=== PATIENT | female | born 1965 | race Caucasian/White ===

== ENCOUNTER 2022-03-08 15:44 | Observation (INO) ==
[2022-03-08] MEDS ORDERED: KETOROLAC TROMETHAMINE 15 MG/ML VIAL IV STA (16:13)
[2022-03-08] MEDS ORDERED: ONDANSETRON INJ 2 MG/ML 2 ML VIAL IV STA (16:13)
[2022-03-08] MEDS ORDERED: SODIUM CHLORIDE 0.9% 1000ML 1,000 ML IV ONE (16:13)
[2022-03-08 16:27] LABS: Basophils # (auto) 0.05 K/uL (0-0.2); Basophils % (auto) 0.5 %; Eosinophils # (auto) 0.18 K/uL (0-0.50); Eosinophils % (auto) 1.8 %; Immature Granulocytes # (auto) 0.03 K/uL (0.00-0.02); Immature Granulocytes % (auto) 0.3 %; Lymphocytes # (auto) 1.03 K/uL (1.2-3.4); Lymphocytes % (auto) 10.2 %; Mean Corpuscular Hemoglobin 29.2 pg (25.0-34.0); Mean Corpuscular Hgb Conc 32.6 g/dL (32.0-36.0); Mean Corpuscular Volume 89.6 fL (80.0-100.0); Mean Platelet Volume 10.9 fL (9.4-12.3); Monocytes # (auto) 0.59 K/uL (0.24-0.82); Monocytes % (auto) 5.9 %; Neutrophils % (auto) 81.3 %; Platelet Count 194 K/uL (130-400); RDW Coefficient of Variation 13.4 % (11.5-14.5); White Blood Count 10.08 K/ul (4.8-10.8)
[2022-03-08 16:39] LABS: Partial Thromboplastin Ratio 0.9; Partial Thromboplastin Time 25.3 Seconds (21.0-31.0); Prothrombin Time 10.6 Seconds (9.0-12.0)
[2022-03-08 16:54] LABS: Alanine Aminotransferase 13 U/L (7-52); Albumin Level 4.3 gm/dl (3.4-5.0); Alkaline Phosphatase 62 U/L (34-104); Anion Gap 8 (3-11); Aspartate Aminotransferase 14 U/L (13-39); BUN Creatinine Ratio 12.4 (10-20); Bilirubin Direct 0.3 mg/dl (0-0.2); Bilirubin,Total 1.4 mg/dl (0.2-1.0); Blood Urea Nitrogen 13 mg/dl (6-23); Calcium 9.6 mg/dl (8.5-10.1); Carbon Dioxide 29 mmol/L (21-32); Chloride 106 mmol/L (98-107); Est GFR (African American) 68.8 ml/min; Est GFR (Non-African American) 59.3 ml/min; Glucose 128 mg/dl (70-99(Fasting)); Lipase 41 U/L (11-82); Potassium 4.1 mmol/L (3.5-5.1); Sodium 143 mmol/L (136-145); Total Protein 7.2 gm/dl (6.0-8.3)
--- NOTE | 2022-03-08 16:58 | Emergency Department Note ---
History of Present Illness General Chief Complaint: Rib Injury/Pain Stated Complaint: RIB PAIN Time Seen by Provider: 03/08/22 15:57 History of Present Illness Provider Complaint: abdominal pain and flank pain Onset (ago): 1 day(s) Pain Consistency: intermittent Location: RUQ Radiation: R flank Maximum Pain Intensity: 9 Current Pain Intensity: 9 Quality: + stabbing, + aching, + sharp and + dull Relieved By: + nothing Exacerbated By: + nothing Context: no foreign travel, no possible food poisoning, no sick contacts, no recent antibiotic use, no recent surgery/procedure or no recent injury Associated Symptoms: + nausea; no vomiting, no diarrhea, no fever, no chills, no constipation, no dysuria, no hematemesis, no hematochezia, no melena, no hematuria, no anorexia, no headache, no chest pain and no breathing difficulty Related Data Patient Confirmed : No Home Medications Medication Instructions Recorded Confirmed Type atorvastatin 10 mg tablet 10 mg PO QPM 03/08/22 03/08/22 History celecoxib 200 mg capsule 200 mg PO QAM 03/08/22 03/08/22 History docusate sodium 100 mg capsule 100 mg PO BID PRN Constipation 03/08/22 03/08/22 History dulaglutide 3 mg/0.5 mL 3 mg subcut WK 03/08/22 03/08/22 History subcutaneous pen injector (Trulicity) duloxetine 60 mg capsule,delayed 120 mg PO QAM 03/08/22 03/08/22 History release gabapentin 600 mg tablet 600 mg PO TID 03/08/22 03/08/22 History lisinopril 5 mg tablet 5 mg PO QAM 03/08/22 03/08/22 History oxycodone-acetaminophen 10 mg-325 1 tab PO Q8H PRN Pain 03/08/22 03/08/22 History mg tablet trazodone 100 mg tablet 100 mg PO HS 03/08/22 03/08/22 History Allergies Allergy/AdvReac Type Severity Reaction Status Date / Time fluticasone Allergy Unknown RASH Unverified 03/08/22 19:46 Past Med/Surg History Medical History (Updated 03/08/22 @ 22:55 by Gerry Kingsley) Anxiety Arthritis Diabetes Dyslipidemia Hypertension Neuropathy Obesity Reactive airway disease SVT (supraventricular tachycardia) Surgical History Hx of cholecystectomy Family History Other Family history non-contributory Social History Smoking Status: Never smoker Preferred Language: Italian Feels Safe at Home: Yes Review of Systems A total of 10 systems reviewed and were otherwise negative Physical Exam Vital Signs: Vital Signs - 24 hr 03/08/22 15:49 03/08/22 16:29 03/08/22 16:29 Temperature 37.7 C H Temperature Source Temporal Artery Sc an Pulse Rate 103 H Pulse Rate [Apical ] 83 Pulse Rate from Sp O2 Sensor Respiratory Rate 20 17 Respiratory Effort / Characteristics Non-Labored Respiratory Depth Normal Blood Pressure 151/85 H Blood Pressure [Le ft Arm] 155/89 H Blood Pressure Stephanie n 107 Blood Pressure Stephanie n [Left Arm] 111 Pulse Oximetry 95 96 96 Oxygen Delivery Me thod Room Air Room Air Room Air Sepsis Recent Feve r Within 48 Hours No Sepsis New/Unexpla ined Change in Men cindy Status N/A Sepsis Action Take n by Nursing No Action Required 03/08/22 17:53 03/08/22 17:57 03/08/22 17:57 Temperature Temperature Source Pulse Rate Pulse Rate [Apical ] Pulse Rate from Sp O2 Sensor 89 95 H Respiratory Rate Respiratory Effort / Characteristics Respiratory Depth Blood Pressure 144/81 H Blood Pressure [Le ft Arm] Blood Pressure Stephanie n 102 Blood Pressure Stephanie n [Left Arm] Pulse Oximetry 95 96 Oxygen Delivery Me thod Sepsis Recent Feve r Within 48 Hours Sepsis New/Unexpla ined Change in Men cindy Status Sepsis Action Take n by Nursing 03/08/22 18:00 03/08/22 18:00 Temperature Temperature Source Pulse Rate Pulse Rate [Apical ] Pulse Rate from Sp O2 Sensor 94 H Respiratory Rate Respiratory Effort / Characteristics Respiratory Depth Blood Pressure 146/79 H Blood Pressure [Le ft Arm] Blood Pressure Stephanie n 101 Blood Pressure Stephanie n [Left Arm] Pulse Oximetry 95 Oxygen Delivery Me thod Sepsis Recent Feve r Within 48 Hours Sepsis New/Unexpla ined Change in Men cindy Status Sepsis Action Take n by Nursing Physical Exam: Physical Exam GENERAL: She is oriented to person, place, and time. She appears well-developed and well-nourished. She does not appear distressed. HENT: Exam performed. -Head: Normocephalic and atraumatic. -Right Ear: External ear normal. No mastoid tenderness. -Left Ear: External ear normal. No mastoid tenderness. -Mouth/Throat: The oropharynx is clear and moist. No trismus in the jaw. No dental abscesses or uvula swelling. No oropharyngeal exudate or tonsillar abscesses. EYES: Conjunctivae and EOM are normal. Pupils are equal, round, and reactive to light. Right eye exhibits no discharge. Left eye exhibits no discharge. No scleral icterus. NECK: Normal range of motion. Neck supple. No JVD present. No spinous process tenderness present. No carotid bruit present. No rigidity. No tracheal deviation and normal range of motion present. No Brudzinski's sign and no Kernig's sign noted. CV: Normal rate, regular rhythm, normal heart sounds and intact distal pulses. There is no peripheral edema. Palpable radial pulses bue. PULM/CHEST: Effort normal and breath sounds normal. No respiratory distress. No stridor. She has no wheezes. She has no rales. -Chest Wall: She exhibits no tenderness. ABD: The abdomen is soft. Bowel sounds are normal. She has no distension. No mass is present. There is tenderness to palpation of the right upper quadrant and right lower quadrant. There is no rebound, no guarding, no Garcia's sign. Rovsig negative. Right-sided CVA tenderness. MUSC/SKEL: Normal range of motion. There is no peripheral edema, tenderness or deformity. LYMPH: No cervical adenopathy. NEURO: She is alert and oriented to person, place, and time. She has normal strength. No cranial nerve deficit or sensory deficit. Coordination and gait normal. GCS eye subscore is 4. GCS verbal subscore is 5. GCS motor subscore is 6. Cerebellar tests wnl. SKIN: Skin is warm and dry. She is not diaphoretic. PSYCH: She has a normal mood and affect. Behavior is normal. Judgment and thought content normal. Course Course 155: The patient was evaluated in room A12. A complete history and physical exam was performed Cardiac monitoring: An order was placed for continuous cardiac monitoring. The monitor shows a rate of 80 with sinus rhythm 1758: Vital signs stable. Labs within normal limits. Patient CT shows meter fluid-filled appendix with periappendiceal inflammation. Representing acute appendicitis. On reassessment the patient is still having pain on palpation of the abdomen quadrant. Patient will be treated with Rocephin and Flagyl General surgery consulted. Administered Medications Fentanyl Citrate (Fentanyl Citrate 100 Mcg/2 Ml Vial) 25 mcg IV Q5M PRN PRN Reason: PACU Use Only-Pain Stop: 03/09/22 03:23 Last Admin: 03/08/22 21:46 Dose: 25 mcg Documented By: OANH Lactated Ringer's (Lr) 1,000 mls @ 100 mls/hr IV .Q10H RAMONE Stop: 04/07/22 19:29 Last Admin: 03/08/22 22:23 Dose: 100 mls/hr Documented By: JUAN Ondansetron HCl (Ondansetron Inj 2 Mg/Ml 2 Ml Vial) 4 mg IV ONCE PRN PRN Reason: PACU Use Only-Nausea/Vomiting Stop: 03/09/22 03:23 Last Admin: 03/08/22 21:16 Dose: 4 mg Documented By: OANH Discontinued Medications Bupivacaine HCl (Bupivacaine 0.5 % 5 Mg/1 Ml Mpf 30ml Vial) Confirm Administered Dose 30 ml .ROUTE .STK-MED ONE Stop: 03/08/22 19:11 Last Admin: 03/08/22 20:52 Dose: 30 ml Documented By: CRUZITO Fentanyl Citrate (Fentanyl Citrate 100 Mcg/2 Ml Vial) Confirm Administered Dose 100 mcg .ROUTE .STK-MED ONE Stop: 03/08/22 21:47 Last Admin: 03/08/22 22:19 Dose: Not Given Documented By: JUAN Sodium Chloride (Nss 1000ml) 1,000 mls @ 999 mls/hr IV .Q1H1M ONE Stop: 03/08/22 17:13 Last Infusion: 03/08/22 17:59 Dose: 0 mls/hr Documented By: [id number] Admin: 03/08/22 16:31 Dose: 999 mls/hr Documented By: ANNIKA Ceftriaxone Sodium (Rocephin) 1,000 mg in 50 mls @ 100 mls/hr IV NOW STA Stop: 03/08/22 18:24 Last Infusion: 03/08/22 22:20 Dose: 0 mls/hr Documented By: Admin: 03/08/22 18:35 Dose: 100 mls/hr Documented By: [id number] Metronidazole (Flagyl) 500 mg in 100 mls @ 100 mls/hr IV NOW STA Stop: 03/08/22 18:54 Last Infusion: 03/08/22 22:20 Dose: 0 mls/hr Documented By: Admin: 03/08/22 18:35 Dose: 100 mls/hr Documented By: [id number] Acetaminophen (Ofirmev) 1,000 mg in 100 mls @ 400 mls/hr IV NOW STA Stop: 03/08/22 19:29 Last Admin: 03/08/22 22:19 Dose: Not Given Documented By: [facility] Ketorolac Tromethamine (Ketorolac Tromethamine 15 Mg/Ml Vial) 15 mg IV NOW STA Stop: 03/08/22 16:14 Last Admin: 03/08/22 16:31 Dose: 15 mg Documented By: ML Ondansetron HCl (Ondansetron Inj 2 Mg/Ml 2 Ml Vial) 4 mg IV NOW STA Stop: 03/08/22 16:14 Last Admin: 03/08/22 16:31 Dose: 4 mg Documented By: ML Ondansetron HCl (Ondansetron Inj 2 Mg/Ml 2 Ml Vial) Confirm Administered Dose 4 mg .ROUTE .STK-MED ONE Stop: 03/08/22 21:16 Last Admin: 03/08/22 22:19 Dose: Not Given Documented By: KATHY Medical Decision Making Laboratory Data Result diagrams: 03/08/22 16:15 03/08/22 16:15 Lab Results 03/08/22 03/08/22 03/08/22 Range/Units 16:15 16:15 16:15 WBC 10.08 (4.8-10.8) K/ul RBC 4.80 (3.93-5.22) M/uL Hgb 14.0 (12.0-16.0) g/dl Hct 43.0 (34.1-44.9) % MCV 89.6 (80.0-100.0) fL MCH 29.2 (25.0-34.0) pg MCHC 32.6 (32.0-36.0) g/dL RDW Std Deviation 44.0 (36.4-46.3) fL RDW Coeff of Tyler 13.4 (11.5-14.5) % Plt Count 194 (130-400) K/uL MPV 10.9 (9.4-12.3) fL Immature Gran % (Auto) 0.3 % Neut % (Auto) 81.3 % Lymph % (Auto) 10.2 % [place] % (Auto) 5.9 % Eos % (Auto) 1.8 % Baso % (Auto) 0.5 % Neut # (Auto) 8.20 H (1.4-6.5) K/uL Lymph # (Auto) 1.03 L (1.2-3.4) K/uL [place] # (Auto) 0.59 (0.24-0.82) K/uL Eos # (Auto) 0.18 (0-0.50) K/uL Baso # (Auto) 0.05 (0-0.2) K/uL Immature Gran # (Auto) 0.03 H (0.00-0.02) K/uL PT 10.6 (9.0-12.0) Seconds INR 1.0 (0.9-1.1) APTT 25.3 (21.0-31.0) Seconds PTT Ratio 0.9 Sodium 143 (136-145) mmol/L Potassium 4.1 (3.5-5.1) mmol/L Chloride 106 (98-107) mmol/L Carbon Dioxide 29 (21-32) mmol/L Anion Gap 8 (3-11) BUN 13 (6-23) mg/dl Creatinine 1.05 (0.6-1.2) mg/dl Est Cr Clr Drug Dosing Not Reportable Est GFR ( Amer) 68.8 ml/min Est GFR (Non-Af Amer) 59.3 ml/min BUN/Creatinine Ratio 12.4 (10-20) Glucose 128 H (70-99(Fasting)) mg/dl Calcium 9.6 (8.5-10.1) mg/dl Total Bilirubin 1.4 H (0.2-1.0) mg/dl Direct Bilirubin 0.3 H (0-0.2) mg/dl AST 14 (13-39) U/L ALT 13 (7-52) U/L Alkaline Phosphatase 62 (34-104) U/L Total Protein 7.2 (6.0-8.3) gm/dl Albumin 4.3 (3.4-5.0) gm/dl Lipase 41 (11-82) U/L Urine Color Urine Appearance (Clear) Urine pH (4.5-7.5) Ur Specific [place] (1.000-1.030) Urine Protein (Negative) Urine Glucose (UA) (Negative) Urine Ketones (Negative) Urine Blood (Negative) Urine Nitrite (Negative) Urine Bilirubin (Negative) Urine Urobilinogen (Negative) Ur Leukocyte Esterase (Negative) Urine WBC (Auto) (0-5) /hpf Urine RBC (Auto) (0-4) /hpf U Hyaline Cast (Auto) (0-5) /lpf U Epithel Cells (Auto) (0-5) /lpf Urine Bacteria (Auto) (Negative) SARS-CoV-2, RNA, NAAT (NEGATIVE) 03/08/22 03/08/22 Range/Units 18:45 18:45 WBC (4.8-10.8) K/ul RBC (3.93-5.22) M/uL Hgb (12.0-16.0) g/dl Hct (34.1-44.9) % MCV (80.0-100.0) fL MCH (25.0-34.0) pg MCHC (32.0-36.0) g/dL RDW Std Deviation (36.4-46.3) fL RDW Coeff of Tyler (11.5-14.5) % Plt Count (130-400) K/uL MPV (9.4-12.3) fL Immature Gran % (Auto) % Neut % (Auto) % Lymph % (Auto) % [place] % (Auto) % Eos % (Auto) % Baso % (Auto) % Neut # (Auto) (1.4-6.5) K/uL Lymph # (Auto) (1.2-3.4) K/uL [place] # (Auto) (0.24-0.82) K/uL Eos # (Auto) (0-0.50) K/uL Baso # (Auto) (0-0.2) K/uL Immature Gran # (Auto) (0.00-0.02) K/uL PT (9.0-12.0) Seconds INR (0.9-1.1) APTT (21.0-31.0) Seconds PTT Ratio Sodium (136-145) mmol/L Potassium (3.5-5.1) mmol/L Chloride (98-107) mmol/L Carbon Dioxide (21-32) mmol/L Anion Gap (3-11) BUN (6-23) mg/dl Creatinine (0.6-1.2) mg/dl Est Cr Clr Drug Dosing Est GFR ( Amer) ml/min Est GFR (Non-Af Amer) ml/min BUN/Creatinine Ratio (10-20) Glucose (70-99(Fasting)) mg/dl Calcium (8.5-10.1) mg/dl Total Bilirubin (0.2-1.0) mg/dl Direct Bilirubin (0-0.2) mg/dl AST (13-39) U/L ALT (7-52) U/L Alkaline Phosphatase (34-104) U/L Total Protein (6.0-8.3) gm/dl Albumin (3.4-5.0) gm/dl Lipase (11-82) U/L Urine Color Yellow Urine Appearance Cloudy A (Clear) Urine pH 5.5 (4.5-7.5) Ur Specific [place] 1.018 (1.000-1.030) Urine Protein Negative (Negative) Urine Glucose (UA) Negative (Negative) Urine Ketones Trace H (Negative) Urine Blood Negative (Negative) Urine Nitrite Negative (Negative) Urine Bilirubin Negative (Negative) Urine Urobilinogen Negative (Negative) Ur Leukocyte Esterase Negative (Negative) Urine WBC (Auto) 1-5 (0-5) /hpf Urine RBC (Auto) 10-30 H (0-4) /hpf U Hyaline Cast (Auto) 1-5 (0-5) /lpf U Epithel Cells (Auto) >30 H (0-5) /lpf Urine Bacteria (Auto) Negative (Negative) SARS-CoV-2, RNA, NAAT NEGATIVE (NEGATIVE) Imaging Data Radiologist's Impression: Abdomen/Pelvis CT 03/08/22 16:[address] WITHOUT CONTRAST CT DOSE: 1120.01 mGy.cm HISTORY: Acute right-sided flank pain r flank ruq pain TECHNIQUE: Multiaxial CT images of the abdomen and pelvis were performed without contrast. A dose lowering technique was utilized adhering to the principles of ALARA. COMPARISON STUDY: None. FINDINGS: Mild bibasilar opacities suggest atelectasis. No pneumatosis or pneumoperitoneum. The unenhanced spleen, mildly atrophic pancreas and adrenal glands are unremarkable. Cholecystectomy. Unremarkable liver. The kidneys demonstrate no renal or ureteral calculi or hydronephrosis. Partial distention of the urinary bladder. Fundal endometrial calcifications. No adnexal mass lesion. No abdominal aortic aneurysm or lymphadenopathy. No bowel obstruction. Mild colonic diverticulosis without acute diverticulitis. Mild colonic fecal retention. The appendiceal tip is mildly dilated at 9 mm. Trace periappendiceal inflammation. Tiny fat filled umbilical hernia. Numerous nodular is a subcentimeter foci of the right greater than left breasts. Degenerative changes of the spine, pelvis and right hip. Left hip arthroplasty. There is mild paravertebral edema at T8-T9. No endplate erosions. IMPRESSION: 1. The appendix is mildly dilated at 9 mm is fluid-filled and demonstrates trace periappendiceal inflammation. Finding may represent early acute appendicitis in the appropriate clinical setting. 2. No pneumoperitoneum or abscess. 3. No renal or ureteral calculi or hydronephrosis. 4. Mild colonic diverticulosis. 5. Cholecystectomy. 6. Mild nonspecific paravertebral edema at T8-T9 without acute fracture or endplate erosion. This finding may be on a degenerative basis. ACT 112: Negative or not required by law. The above report was generated using voice recognition software. It may contain grammatical, syntax or spelling errors. Electronically signed by: Darek Carmona M.D. 03/08/2022 5:50 PM Chest X-Ray 03/08/22 19:24 XR chest 1V portable HISTORY: 56 years-old Female pre-op preoperative exam. No acute chest complaints COMPARISON: CT abdomen and pelvis of same day TECHNIQUE: Portable AP view of the chest FINDINGS: Cardiac silhouette is enlarged. No pneumothorax, large pleural effusion or overt pulmonary edema. Postoperative changes of the cervical spine. Degenerative changes of the shoulders and spine. IMPRESSION: No acute process. ACT 112: Negative or not required by law. The above report was generated using voice recognition software. It may contain grammatical, syntax or spelling errors. Electronically signed by: Darek Carmona M.D. 03/08/2022 7:49 PM MDM Narrative Vital signs stable. Labs within normal limits. Patient CT shows meter fluid- filled appendix with periappendiceal inflammation. Representing acute appendicitis. On reassessment the patient is still having pain on palpation of the abdomen quadrant. Patient will be treated with Rocephin and Flagyl General surgery consulted. Impression & Plan Acute appendicitis Discharge Plan Visit Data Chief Complaint: Rib Injury/Pain Stated Complaint: RIB PAIN ED Provider: Gerry Kingsley Discharge Problem: Acute appendicitis Patient Disposition: Admitted As Inpatient Discharge Instructions Interventions: ED Discharge Assessment Last Done: 03/08/22 19:47
--- NOTE | 2022-03-08 17:52 | CT Scan Report ---
ABDOMEN AND PELVIS CT WITHOUT CONTRAST CT DOSE: 1120.01 mGy.cm HISTORY: Acute right-sided flank pain r flank ruq pain TECHNIQUE: Multiaxial CT images of the abdomen and pelvis were performed without contrast. A dose lo wering technique was utilized adhering to the principles of ALARA. COMPARISON STUDY: None. FINDINGS: Mild bibasilar opacities suggest atelectasis. No pneumatosis or pneumoperitoneum. The unenh anced spleen, mildly atrophic pancreas and adrenal glands are unremarkable. Cholecystectomy. Unremark able liver. The kidneys demonstrate no renal or ureteral calculi or hydronephrosis. Partial distentio n of the urinary bladder. Fundal endometrial calcifications. No adnexal mass lesion. No abdominal aor tic aneurysm or lymphadenopathy. No bowel obstruction. Mild colonic diverticulosis without acute diverticulitis. Mild colonic fecal re tention. The appendiceal tip is mildly dilated at 9 mm. Trace periappendiceal inflammation. Tiny fat filled umbilical hernia. Numerous nodular is a subcentimeter foci of the right greater than left riri sts. Degenerative changes of the spine, pelvis and right hip. Left hip arthroplasty. There is mild pa ravertebral edema at T8-T9. No endplate erosions. IMPRESSION: 1. The appendix is mildly dilated at 9 mm is fluid-filled and demonstrates trace periappendiceal infl ammation. Finding may represent early acute appendicitis in the appropriate clinical setting. 2. No pneumoperitoneum or abscess. 3. No renal or ureteral calculi or hydronephrosis. 4. Mild colonic diverticulosis. 5. Cholecystectomy. 6. Mild nonspecific paravertebral edema at T8-T9 without acute fracture or endplate erosion. This fin ding may be on a degenerative basis. ACT 112: Negative or not required by law. The above report was generated using voice recognition software. It may contain grammatical, syntax o r spelling errors. Electronically signed by: Darek Carmona M.D. 03/08/2022 5:50 PM
[2022-03-08] MEDS ORDERED: metroNIDAZOLE 500 MG/100 ML BAG IV STA (17:55)
[2022-03-08] MEDS ORDERED: cefTRIAXone SODIUM 1,000 MG/50 ML BAG IV STA (17:55)
[2022-03-08] MEDS ORDERED: BUPIVACAINE 0.5 % 5 MG/1 ML MPF 30ML VIAL ONE (19:10)
[2022-03-08] MEDS ORDERED: ACETAMINOPHEN 1,000 MG/100 ML VIAL IV STA (19:15)
[2022-03-08] MEDS ORDERED: ATROPINE SULFATE 0.1 MG/ML 10ML SYR IV PRN (19:23)
[2022-03-08] MEDS ORDERED: fentaNYL citrate 100 MCG/2 ML VIAL IV PRN (19:23)
[2022-03-08] MEDS ORDERED: LABETALOL HCL IV 5 MG/ML 20ML IV PRN (19:23)
[2022-03-08] MEDS ORDERED: ePHEDrine sulfate 50 MG/ML AMP IV PRN (19:23)
[2022-03-08] MEDS ORDERED: HYDROmorphone INJ 1 MG/ML SYRINGE IV PRN (19:23)
[2022-03-08] MEDS ORDERED: ONDANSETRON INJ 2 MG/ML 2 ML VIAL IV PRN ×2 (19:23→19:30)
[2022-03-08] MEDS ORDERED: MEPERIDINE HCL 25 MG/ML CARP/VIAL IV PRN (19:23)
[2022-03-08] MEDS ORDERED: PHENYLEPHRINE 100MCG/ML 5ML SYR IV PRN (19:23)
--- NOTE | 2022-03-08 19:24 | Anesthesiology Consultation ---
Date of Service March 08, 2022 Assessment & Plan (1) Encounter for pre-operative examination: Chart Review Chart Review: Acceptable Risk for Surgery and Patient NOT seen in Pre Admission Testing Consults Requested none History Surgery Operation Date: 03/08/22 20:30 Proposed Procedures p Laparoscopic Appendectomy - Juma Pascual DO, FACS Height/Weight Height: 5 ft 8 in Weight: 107.2 kg Allergies Allergy/AdvReac Type Severity Reaction Status Date / Time fluticasone Allergy Unknown RASH Unverified 08/22/15 13:14 Medications Home Medications Medication Instructions Recorded Confirmed Last Taken Albuterol Inhaler (VENTOLIN 2 puff inhalation DIRECTED PRN 08/22/15 Unknown INHALER) Wheezing #5 Inhalers Diltiazem Hcl Ext Rel (Tiazac) 120 mg PO DAILY #0 caps 08/22/15 Unknown LORAZEPAM (ATIVAN) 0.5 mg PO TID PRN Anxiety #0 tabs 08/22/15 Unknown Past Medical History Medical History Anxiety Diabetes Obesity Reactive airway disease SVT (supraventricular tachycardia) Past Family History Family History Other Family history non-contributory Past Surgical History Surgical History Hx of cholecystectomy Social History Smoking Status: Never smoker Physical Exam Vital Signs Last Vital Signs Temp 37.7 C H 03/08/22 15:49 Pulse 83 03/08/22 16:29 Resp 17 03/08/22 16:29 BP 146/79 H 03/08/22 18:00 Pulse Ox 95 03/08/22 18:00 O2 Del Method 03/08/22 16:29 Testing Laboratory Results 03/08/22 16:15 03/08/22 16:15 PT 10.6 Seconds (9.0-12.0) 03/08/22 16:15 INR 1.0 (0.9-1.1) 03/08/22 16:15 APTT 25.3 Seconds (21.0-31.0) 03/08/22 16:15 Electrocardiogram Date: 03/08/22 Findings: + NSR @ (87) Other Testing ABDOMEN AND PELVIS CT WITHOUT CONTRAST CT DOSE: 1120.01 mGy.cm HISTORY: Acute right-sided flank pain r flank ruq pain TECHNIQUE: Multiaxial CT images of the abdomen and pelvis were performed without contrast. A dose lowering technique was utilized adhering to the principles of ALARA. COMPARISON STUDY: None. FINDINGS: Mild bibasilar opacities suggest atelectasis. No pneumatosis or pneumoperitoneum. The unenhanced spleen, mildly atrophic pancreas and adrenal glands are unremarkable. Cholecystectomy. Unremarkable liver. The kidneys demonstrate no renal or ureteral calculi or hydronephrosis. Partial distention of the urinary bladder. Fundal endometrial calcifications. No adnexal mass lesion. No abdominal aortic aneurysm or lymphadenopathy. No bowel obstruction. Mild colonic diverticulosis without acute diverticulitis. Mild colonic fecal retention. The appendiceal tip is mildly dilated at 9 mm. Trace periappendiceal inflammation. Tiny fat filled umbilical hernia. Numerous nodular is a subcentimeter foci of the right greater than left breasts. Degene rative changes of the spine, pelvis and right hip. Left hip arthroplasty. There is mild paravertebral edema at T8-T9. No endplate erosions. IMPRESSION: 1. The appendix is mildly dilated at 9 mm is fluid-filled and demonstrates trace periappendiceal inflammation. Finding may represent early acute appendicitis in the appropriate clinical setting. 2. No pneumoperitoneum or abscess. 3. No renal or ureteral calculi or hydronephrosis. 4. Mild colonic diverticulosis. 5. Cholecystectomy. 6. Mild nonspecific paravertebral edema at T8-T9 without acute fracture or endplate erosion. This finding may be on a degenerative basis. ACT 112: Negative or not required by law. The above report was generated using voice recognition software. It may contain grammatical, syntax or spelling errors. Electronically signed by: Darek Carmona M.D. 03/08/2022 5:50 PM Dictated:03/08/221742 Transcribed: 03/08/221742
[2022-03-08 19:25] LABS: Appearance Urine Cloudy (Clear); Bacteria Urine Automated Negative (Negative); Bilirubin Urine Negative (Negative); Blood Urine Negative (Negative); Color Urine Yellow; Epithelial Cell Urine Auto >30 /lpf (0-5); Glucose Urine UA Negative (Negative); Ketones Urine Trace (Negative); Leukocyte Esterase Urine Negative (Negative); Nitrite Urine Negative (Negative); Protein Urine Negative (Negative); Specific Gravity Urine 1.018 (1.000-1.030); Urobilinogen Urine Negative (Negative); pH Urine 5.5 (4.5-7.5)
[2022-03-08] MEDS ORDERED: MIDAZOLAM HCL 1 MG/ML 2ML VIAL ONE (19:26)
[2022-03-08] MEDS ORDERED: fentaNYL citrate 100 MCG/2 ML VIAL ONE ×3 (19:27→21:46)
[2022-03-08] MEDS ORDERED: PROPOFOL IV EMULSION 10 MG/ML 100 ML VIAL IV ONE (19:27)
[2022-03-08] MEDS ORDERED: DEXAMETHASONE SOD INJ 4 MG/ML VIAL ONE (19:29)
[2022-03-08] MEDS ORDERED: ONDANSETRON INJ 2 MG/ML 2 ML VIAL ONE ×2 (19:29→21:15)
[2022-03-08] MEDS ORDERED: LIDOCAINE 2% 20 MG/ML 5 ML SYR IV ONE (19:29)
--- NOTE | 2022-03-08 19:30 | History & Physical Report ---
Date of Service March 08, 2022 Assessment & Plan (1) Acute appendicitis: Plan: Due to the patient's clinical presentation as well as imaging we will proceed as follows: We will keep the patient n.p.o. We will provide analgesics We will provide antiemetics She has received antibiotics in the form of Rocephin and Flagyl. We will continue antibiotics in the perioperative period We will provide IV fluid for hydration We are planning on proceeding with an appendectomy but with Dr. Pascual this evening. I outlined the risks, benefits, and alternatives with the patient as well as outlined the expected postoperative course and she wishes to proceed A preoperative COVID test has been ordered and is noted to be negative We will check a preoperative chest x-ray Additional recommendations be forthcoming based on operative findings and her postoperative course We will use SCDs for DVT prevention, no chemical means due to planned surgery She will be a level 1 full code History of Present Illness Chief Complaint: Abdominal pain Primary Care Provider: Seymour Joselynsharlene This is a 56-year-old female who notes that she was in her usual state of health yesterday but woke up this morning with pain on the right side of her abdomen. She notes that the pain is in the right upper quadrant underneath her ribs but also in the right lower quadrant. She had nausea without vomiting. She notes her most recent oral intake was approximately 3:00 PM on 03/07/2022. She denies any fevers, shakes, chills. She does note she has had prior abdominal surgeries that she has had a laparoscopic cholecystectomy, a tubal ligation, as well as a uterine ablation. She does not identify any modifying factors or radiation to her pain. Because of the pain she presented to the emergency department. It is nowhere the mention she notes in 2006 she had similar abdominal pain at which time she was told she had an appendicitis. She opted not to have surgery as she had family obligations and she has not had an issue with such pain until today. In the emergency department the patient had labs and imaging which independent reviewed. A CBC revealed white blood cell count, hemoglobin, hematocrit, and platelet count were all normal. Coagulation studies were noted to be normal. Chemistry profile showed sodium, potassium, BUN, and creatinine were normal. There was a slight elevation of her total bilirubin at 1.4 and a slight elevation of direct bilirubin 0.3. Transaminases, alkaline phosphatase, and li pase were all nonelevated.A CT scan of the abdomen pelvis showed the patient had a mildly dilated appendix measuring approximately 9 mm. The appendix was fluid- filled and had periappendiceal inflammation concerning for acute appendicitis. There is no evidence of pneumoperitoneum or abscess. At the time of my interview she was resting comfortably in bed she was in no distress Allergies Allergy/AdvReac Type Severity Reaction Status Date / Time fluticasone Allergy Unknown RASH Unverified 03/08/22 19:46 Home Medications Medication Instructions Recorded Confirmed Type atorvastatin 10 mg tablet 10 mg PO QPM 03/08/22 03/08/22 History celecoxib 200 mg capsule 200 mg PO QAM 03/08/22 03/08/22 History docusate sodium 100 mg capsule 100 mg PO BID PRN Constipation 03/08/22 03/08/22 History dulaglutide 3 mg/0.5 mL 3 mg subcut WK 03/08/22 03/08/22 History subcutaneous pen injector (Trulicity) duloxetine 60 mg capsule,delayed 120 mg PO QAM 03/08/22 03/08/22 History release gabapentin 600 mg tablet 600 mg PO TID 03/08/22 03/08/22 History lisinopril 5 mg tablet 5 mg PO QAM 03/08/22 03/08/22 History oxycodone-acetaminophen 10 mg-325 1 tab PO Q8H PRN Pain 03/08/22 03/08/22 History mg tablet trazodone 100 mg tablet 100 mg PO HS 03/08/22 03/08/22 History Past Med/Surg History Medical History Anxiety Diabetes Obesity Reactive airway disease SVT (supraventricular tachycardia) Surgical History Hx of cholecystectomy Family History Other Family history non-contributory Social History Smoking Status: Never smoker Preferred Language: Ghanaian Feels Safe at Home: Yes Review of Systems Constitutional: no fever and no chills Eyes: + corrective lenses Ear, Nose, Mouth, Throat: no ear pain Respiratory: no cough and no dyspnea Cardiovascular: no chest pain Gastrointestinal: as per Subjective / HPI, + abdominal pain and + nausea; no vomiting Genitourinary: no dysuria Musculoskeletal: no back pain Integumentary: no rash Neurologic: no localized weakness Physical Exam Constitutional: WD/WN, vitals as above Eyes: Wears glasses ENMT: Ears: no hearing impairment and no external ear abnormality Mouth: no oropharynx abnormality Neck: trachea midline Respiratory: normal respiratory effort, lungs clear to auscultation Cardiovascular: Rate/Rhythm: regular rate and regular rhythm Vessels: dorsalis pedis pulses present Gastrointestinal (Abdomen): Abdomen is soft, nonrigid, nondistended. The patient did have pain with palpation in the right upper quadrant and also in the right lower quadrant directly over McBurney's point. There is no rebound tenderness or guarding. Musculoskeletal: No calf tenderness, no nonhealing foot wounds Skin: no rashes Neurologic: moves all extremities Psychiatric: A+Ox3, euthymic affect Results & Data Results & Data ([facility]) Vital Signs (Past 12 Hours) Vital Signs Temp Pulse Pulse Resp BP BP Pulse Ox 03/08/22 18:00 95 03/08/22 18:00 146/79 H 03/08/22 17:57 96 03/08/22 17:57 144/81 H 03/08/22 17:53 95 03/08/22 16:29 96 03/08/22 16:29 83 17 155/89 H 96 03/08/22 15:49 37.7 C H 103 H 20 151/85 H 95 O2 Del Method 03/08/22 18:00 03/08/22 18:00 03/08/22 17:57 03/08/22 17:57 03/08/22 17:53 03/08/22 16:29 Room Air 03/08/22 16:29 Room Air 03/08/22 15:49 Room Air Supervising Physician Co-Signing Physician Notes Patient seen and examined, labs and imaging reviewed, agree with above. 56-year-old female presented with Right lower quadrant abdominal pain. started this morning. She had a similar episode several years ago. Prior cholecystectomy. On exam she has a low-grade fever to 37.7 with stable vitals. Abdomen is soft, tender to palpation in the right lower quadrant. WBC normal but with slight left shift. CT personally viewed and interpreted and agreed with an early acute appendicitis. Plan for laparoscopic appendectomy risk the procedure were discussed to include but not limited to bleeding, infection, conversion open, normal appendix, damage to surrounding structures, need for future more extensive surgery, abscess, and the risk of anesthesia Admit for overnight ops, likely discharge in the morning PG Care Time/CCT Total # of Minutes Spent Total Time Spent with Patient: Total time spent is greater than 50% in coordination of care (as documented) at patient's floor/unit and/or counseling patient: Coding Level of Care Code 63931 Initial Inpt Care Lvl 3 Diagnoses Acute appendicitis K35.80
--- NOTE | 2022-03-08 19:50 | XRay Report ---
XR chest 1V portable HISTORY: 56 years-old Female pre-op preoperative exam. No acute chest complaints COMPARISON: CT abdomen and pelvis of same day TECHNIQUE: Portable AP view of the chest FINDINGS: Cardiac silhouette is enlarged. No pneumothorax, large pleural effusion or overt pulmonary edema. Pos toperative changes of the cervical spine. Degenerative changes of the shoulders and spine. IMPRESSION: No acute process. ACT 112: Negative or not required by law. The above report was generated using voice recognition software. It may contain grammatical, syntax o r spelling errors. Electronically signed by: Darek Carmona M.D. 03/08/2022 7:49 PM
[2022-03-08] MEDS ORDERED: ROCURONIUM BROMIDE 10 MG/ML 5 ML VIAL IV ONE (20:31)
[2022-03-08] MEDS ORDERED: NEOSTIGMINE METHYLSULFATE 1 MG/ML 10ML VIAL ONE (20:31)
[2022-03-08] MEDS ORDERED: GLYCOPYRROLATE 0.2 MG/ML VIAL ONE (20:31)
[2022-03-08] MEDS ORDERED: KETOROLAC 30 MG/ML VIAL ONE (20:52)
--- NOTE | 2022-03-08 20:59 | Operative Report ---
PG Post Operative Report Pre & Post Diagnosis Operation Date: 03/08/22 20:30 Pre-Op Diagnosis: Acute appendicitis. Post-Op Diagnosis: Acute appendicitis, Meckel's diverticulum I identified the patient and participated in the time-out.: Yes Procedure Operation Date: 03/08/22 20:30 Actual Procedures p Laparoscopic Appendectomy, laparoscopic Meckel's diverticulectomy - Juma Pascual DO, ARYAN Surgeon Juma Pascual DO, ARYAN Charter Representative Jose Carlos Miller Estimated Blood Loss 5 Findings Consistent with Post-Op Diagnosis Mild acute appendicitis, appendectomy performed, good hemostasis. Bowel run and not inflamed Meckel's diverticulum identified. Stapled Meckel's diverticulectomy performed, good hemostasis. Remainder of abdomen benign. Specimens Appendix Meckel's diverticulum Anesthesia Type General Complications none Disposition Accompanied Patient To Recovery: No Disposition: Recovery Room Indications 56-year-old female presented to the emergency department with complaints of right lower quadrant pain, CT confirmed presence of acute appendicitis. Plan for laparoscopic appendectomy. The risks of the procedure were discussed, all questions were answered, and the patient agreed to proceed with surgery as planned. Description of Procedure The patient was properly identified, consented, and taken to the operating room where she was placed in the supine position. General endotracheal anesthesia was induced. SCDs and a safety belt were placed. Preoperative antibiotics were administered. A Briceño catheter was not placed. The patient's abdomen was prepped and draped in the standard sterile fashion. Surgical timeout was performed and all parties were in agreement that this was the correct patient and procedure to be performed and we continued as planned. An incision was made just to the left of the umbilicus. The Veress needle was inserted and saline drop test confirmed entry into the abdomen. The abdomen was insufflated with carbon dioxide with the patient tolerated without incident. A 5 mm trocar was then inserted using the 5 mm 30 degree camera and the Optiview technique. The laparoscope was inserted and no damage from initial trocar placement was noted, no gross abnormalities were noted within the 4 quadrants the abdomen. A 12 mm port was placed in the left lower quadrant with care not to damage the epigastric vessels, and a 5 mm port was placed in the suprapubic midline with care not to damage the bladder. The patient was placed in Trendelenburg position and rotated towards the left. The small bowel was swept away from the right lower quadrant. The cecum was grasped with an atraumatic grasper exposing the appendix. The appendix was mildly inflamed and there was no evidence of perforation. There was no fluid in the pelvis. A window was created between the base of the appendix and the mesoappendix. A barros loaded endoscopic stapler was then used to divide the appendix at its base. The Sonicision was then used to divide the mesoappendix. Hemostasis was good. The appendix was placed in an Endo Catch bag and removed through the umbilical port site. The right lower quadrant and pelvis was irrigated and hemostasis was found to be good. Due to the mild inflammation of the appendix I further explored the small bowel. Approximately 50 to 60 cm proximal to the ileocecal valve there was evidence of a noninflamed widemouth Meckel's diverticulum. This was excised with a 60 mm purple loaded endoscopic stapler. Hemostasis was good. There was no evidence of a leak. Remainder of the abdomen was explored and was found to be benign. Hemostasis was good. The 12 mm port site fascia was then closed with a percutaneous closure device and an 0 Vicryl suture [id number]. 5 mm trochars were removed under direct visualization and the abdomen was allowed to collapse. The wound was irrigated, and the skin of all ports was closed with 4-0 Monocryl subcuticular sutures. Dermabond was placed over the wounds. The patient was extubated in the operating room and taken to the PACU where she recovered without apparent incident. All sponge, instrument and needle counts were correct at the conclusion of the procedure. The patient tolerated the procedure well. The physician's first assistant manager was present and scrubbed for the entire the case. He was critical in positioning the patient, prepping draping, retraction and exposure, driving the laparoscope, closure of the incisions, and placement of the dressings. I attest to the content of the Intraoperative Record and any orders documented therein. Any exceptions are noted below.
[2022-03-08] MEDS ORDERED: SUGAMMADEX SODIUM 200 MG/2 ML VIAL IV ONE (21:05)
--- NOTE | 2022-03-08 21:45 | Anesthesiology Progress Note ---
Date of Service March 08, 2022 Anesthesia Post Procedure Vital Signs Vital Signs: Temp Pulse Pulse Resp BP BP Pulse Ox 03/08/22 21:40 36.7 C 79 14 145/81 H 93 03/08/22 21:30 88 18 142/79 H 96 03/08/22 21:20 86 21 149/93 H 99 03/08/22 21:11 36.7 C 91 H 16 151/93 H 97 03/08/22 18:00 95 03/08/22 18:00 146/79 H 03/08/22 17:57 96 03/08/22 17:57 144/81 H 03/08/22 17:53 95 03/08/22 16:29 96 03/08/22 16:29 83 17 155/89 H 96 03/08/22 15:49 37.7 C H 103 H 20 151/85 H 95 O2 Del Method O2 Flow Rate 03/08/22 21:40 Room Air 03/08/22 21:30 Room Air 03/08/22 21:20 Oxymask 8 03/08/22 21:11 Oxymask 8 03/08/22 18:00 03/08/22 18:00 03/08/22 17:57 03/08/22 17:57 03/08/22 17:53 03/08/22 16:29 Room Air 03/08/22 16:29 Room Air 03/08/22 15:49 Room Air Pain Intensity Ribs: Pain Intensity: 2 Abdomen: Pain Intensity: 2 Transfer of Care Handoff Completed per policy Notes Mental Status: alert / awake / arousable Patient Amnestic to Procedure: Yes Nausea / Vomiting: adequately controlled Pain: adequately controlled Airway Patency, RR, SpO2: stable & adequate BP & HR: stable & adequate Hydration State: stable & adequate Anesthetic Complications: no major complications apparent and Pt Satisfied with anesthetic care Notes: Postop BSG 118.
[2022-03-08] MEDS: LACTATED RINGER'S 1,000 ML IV SCH (22:23)
[2022-03-08] MEDS ORDERED: FLUARIX QUADRIVALENT 0.5 ML SYR IM ONE (23:03)
[2022-03-08] MEDS: cefOXitin 2,000 MG in DEXTROSE 5% 50 ML IV SCH (23:44)
[2022-03-08] MEDS: GABAPENTIN 600 MG TAB PO SCH (23:45)
[2022-03-08] MEDS: ATORVASTATIN 10 MG TAB PO SCH (23:46)
[2022-03-08] MEDS: traZODone HCL 100 MG TAB PO SCH (23:46)
[2022-03-09] MEDS ORDERED: metroNIDAZOLE 500 MG/100 ML BAG IV SCH
[2022-03-09] MEDS: MoRPHine SULFATE 4 MG/ML 1 ML CARP\\VIAL IV PRN ×2 (01:09→12:33)
[2022-03-09] MEDS: LACTATED RINGER'S 1,000 ML IV SCH (04:26)
[2022-03-09] MEDS: ACETAMINOPHEN 1,000 MG/100 ML VIAL IV PRN ×2 (04:42→13:15)
[2022-03-09] MEDS: cefOXitin 2,000 MG in DEXTROSE 5% 50 ML IV SCH (06:25)
--- NOTE | 2022-03-09 08:32 | Surgery Progress Note ---
Date of Service March 09, 2022 Assessment & Plan (1) Acute appendicitis: Plan: POD#1 laparoscopic appendectomy + resection of meckel's diverticulum VSS. Pt feeling well. Incisions c/d/i Will advance diet as tolerates On IV apap, IV morphine, and will add po oxy Plan on discharge to home today Dispo instructions reviewed, f/u in clinic with Dr. Pascual in 2 weeks Admission and Anticipated Discharge Date Admission Date: March 08, 2022 Supervising Physician Co-Signing Physician Notes Patient seen examined, labs reviewed, agree with above. POD #1 laparoscopic appendectomy and incidental Meckel's diverticulectomy. She was doing well this morning, however she got up and moved around and felt right upper quadrant pain that was similar to her admission. She has been tolerating diet otherwise pain has been controlled. On exam she is afebrile with stable vitals, mildly tender to palpation at incision sites and on the right side. She seems to have some relief after dose of Toradol. We will see how she does, potential discharge this afternoon, but if she is not able to we will keep her again overnight. If this occurs then we will repeat labs. Subjective Patient says she is feeling much better. Pain controlled. Tolerating clear liquids. No n/v. Physical Exam Physical Exam: awake/alert, no distress Gastrointestinal (Abdomen): Inspection/Auscultation: + abdominal surgical incision (c/d/i with skin glue, no signs of infection); abdomen not distended Percussion/Palpation: + abdomen tender (expected darline incisional discomfort to palpation) and abdomen soft Results & Data ([facility]) Vital Signs (Past 12 Hours) Vital Signs Temp Pulse Pulse Resp BP BP Pulse Ox 03/09/22 07:23 36.6 C 80 16 120/76 93 03/09/22 01:00 36.7 C 61 15 143/84 H 92 03/08/22 23:10 36.7 C 83 16 135/83 91 03/08/22 22:10 37.1 C 82 15 145/84 H 93 03/08/22 22:50 36.7 C 81 14 137/79 93 03/08/22 22:15 03/08/22 22:00 81 16 137/83 92 03/08/22 21:50 86 18 139/77 92 03/08/22 21:40 36.7 C 79 14 145/81 H 93 03/08/22 21:30 88 18 142/79 H 96 03/08/22 21:20 86 21 149/93 H 99 03/08/22 21:11 36.7 C 91 H 16 151/93 H 97 O2 Del Method O2 Flow Rate 03/09/22 07:23 Room Air 03/09/22 01:00 Room Air 03/08/22 23:10 Room Air 03/08/22 22:10 Room Air 03/08/22 22:50 Room Air 03/08/22 22:15 Room Air 03/08/22 22:00 Room Air 03/08/22 21:50 Room Air 03/08/22 21:40 Room Air 03/08/22 21:30 Room Air 03/08/22 21:20 Oxymask 8 03/08/22 21:11 Oxymask 8 PG Care Time/CCT Total # of Minutes Spent Total Time Spent with Patient: Total time spent is greater than 50% in coordination of care (as documented) at patient's floor/unit and/or counseling patient: Coding Level of Care Code None Diagnoses Acute appendicitis K35.80 Acute appendicitis type: unspecified acute appendicitis type (1) Acute appendicitis Acute appendicitis type: unspecified acute appendicitis type Qualified Code(s): K35.80 - Unspecified acute appendicitis
[2022-03-09] MEDS ORDERED: cefTRIAXone SODIUM 2,000 MG in DEXTROSE 5% 50 ML IV SCH (09:00)
[2022-03-09] MEDS: oxyCODONE HCL IR 5 MG TAB (IMMEDIATE RELEASE) PO PRN ×3 (09:02→21:13)
--- NOTE | 2022-03-09 09:17 | Electrocardiogram Report ---
Test Reason : Blood Pressure : / mmHG Vent. Rate : 087 BPM Atrial Rate : 087 BPM P-R Int : 140 ms QRS Dur : 076 ms QT Int : 364 ms P-R-T Axes : 037 -12 053 degrees QTc Int : 438 ms Normal sinus rhythm Normal ECG No previous ECGs available Confirmed by Richie Herman ([id number]) on 03/09/2022 9:17:18 AM Referred By: REFERRED SELF Confirmed By:Sanya Herman
[2022-03-09] MEDS: DULoxetine HCL 60 MG CAP PO SCH (10:05)
[2022-03-09] MEDS: lisinopril 5 MG TAB PO SCH (10:05)
[2022-03-09] MEDS: GABAPENTIN 600 MG TAB PO SCH ×3 (10:05→21:13)
[2022-03-09] MEDS ORDERED: KETOROLAC TROMETHAMINE 15 MG/ML VIAL IV ONE (12:58)
[2022-03-09] MEDS ORDERED: KETOROLAC TROMETHAMINE 15 MG/ML VIAL IV PRN (16:23)
[2022-03-09] MEDS ORDERED: Nursing to Pharmacy Communication SCH (17:30)
[2022-03-09] MEDS ORDERED: PHARMACY GLYCEMIC MGMT CONSULT PRN (17:30)
[2022-03-09] MEDS ORDERED: GLUCAGON FOR INJ 1 MG VIAL IM PRN (18:00)
[2022-03-09] MEDS ORDERED: DEXTROSE 50% 50 ML SYRINGE IV PRN (18:00)
[2022-03-09] MEDS ORDERED: GLUCOSE 40% GEL 15 GM TUBE PO PRN (18:00)
[2022-03-09] MEDS ORDERED: CARBOHYDRATES FOR HYPOGLYCEMIA PO PRN (18:00)
[2022-03-09] MEDS ORDERED: GLUCOSE 10 TAB/TUBE PO PRN (18:00)
[2022-03-09] MEDS: INSULIN ASPART PER UNIT SC SCH ×2 (18:13→21:00)
[2022-03-09] MEDS: ATORVASTATIN 10 MG TAB PO SCH (21:12)
[2022-03-09] MEDS: traZODone HCL 100 MG TAB PO SCH (21:13)
[2022-03-10] MEDS: oxyCODONE HCL IR 5 MG TAB (IMMEDIATE RELEASE) PO PRN (01:00)
[2022-03-10 07:16] LABS: Basophils # (auto) 0.03 K/uL (0-0.2); Basophils % (auto) 0.3 %; Eosinophils # (auto) 0.09 K/uL (0-0.50); Hematocrit (blood only) 33.4 % (34.1-44.9); Hemoglobin 10.9 g/dl (12.0-16.0); Immature Granulocytes # (auto) 0.02 K/uL (0.00-0.02); Immature Granulocytes % (auto) 0.2 %; Lymphocytes # (auto) 2.19 K/uL (1.2-3.4); Lymphocytes % (auto) 24.3 %; Mean Corpuscular Hemoglobin 29.9 pg (25.0-34.0); Mean Corpuscular Hgb Conc 32.6 g/dL (32.0-36.0); Mean Corpuscular Volume 91.5 fL (80.0-100.0); Mean Platelet Volume 11.4 fL (9.4-12.3); Monocytes % (auto) 4.4 %; Neutrophils # (auto) 6.28 K/uL (1.4-6.5); Neutrophils % (auto) 69.8 %; Platelet Count 178 K/uL (130-400); RDW Coefficient of Variation 13.4 % (11.5-14.5); RDW Standard Deviation 45.5 fL (36.4-46.3); Red Blood Count 3.65 M/uL (3.93-5.22); White Blood Count 9.01 K/ul (4.8-10.8)
[2022-03-10 07:29] LABS: Calcium 8.4 mg/dl (8.5-10.1); Creatinine Clr Calc Pharmacy 72.5 ml/min; Est GFR (African American) 67.2 ml/min
[2022-03-10] MEDS: ACETAMINOPHEN 1,000 MG/100 ML VIAL IV PRN (07:35)
[2022-03-10] MEDS: DULoxetine HCL 60 MG CAP PO SCH (07:36)
[2022-03-10] MEDS: GABAPENTIN 600 MG TAB PO SCH (07:36)
[2022-03-10] MEDS: lisinopril 5 MG TAB PO SCH (07:37)
[2022-03-10] MEDS: INSULIN ASPART PER UNIT SC SCH (08:31)
--- NOTE | 2022-03-10 08:38 | Pharmacy Report ---
Pharmacy Glycemic Sign Off Nt - Date of Service March 10, 2022 - Assessment & Plan ASSESSMENT: * Pharmacy was consulted by Francheska Ryan PA-C on 03/09/22 for glycemic control and to write orders per [facility] inpatient glycemic control protocol. * Major changes made by pharmacy to antidiabetic regimen include: * addition of Novolog correction factor * Patient received 1 unit of insulin per day for adequate glycemic control * BSGs ranging 105-149 mg/dl yesterday * Fasting BSG of 96 mg/dL this morning * Do not anticipate further changes in patient status that would quickly deteriorate glycemic control (i.e. patient to be NPO for upcoming procedure, steroids tapering, starting tube feedings, etc). PLAN FOR INPATIENT GLYCEMIC CONTROL: No changes needed to current regimen. * Hold basal insulin * Continue NovoLog per scale ACHS/Q6hrs while NPO * Goal range = 110-140 mg/dl * CF = 25 mg/dl/unit * no carb coverage * Pharmacy is signing off of glycemic consult and will no longer be making adjustments to inpatient regimen. Please feel free to re-consult if needed. Thank you.
--- NOTE | 2022-03-10 08:40 | Surgery Progress Note ---
Date of Service March 10, 2022 Assessment & Plan (1) Acute appendicitis: Plan: POD#2 laparoscopic appendectomy + resection of meckel's diverticulum WBC 9, Hbg 10.9 (14). VSS. Pt feeling better than yesterday. Incisions c/d/i. Improved abdominal discomfort Continue diet. Pain control prn Plan on discharge to home today Dispo instructions reviewed, f/u in clinic with Dr. Pascual in 2 weeks Admission and Anticipated Discharge Date Admission Date: March 08, 2022 Subjective Patient says she is feeling much better than yesterday. Tolerating diet. No n/v. Some mild discomfort to palpation of RUQ, but overall improved. Physical Exam Physical Exam: awake/alert, no distress Gastrointestinal (Abdomen): Inspection/Auscultation: + abdominal surgical incision (c/d/i, some mild ecchymosis); abdomen not distended Percussion/Palpation: + abdomen tender (some mild RUQ pain and expected darline incisional discomfort) and abdomen soft Results & Data ([facility]) Vital Signs (Past 12 Hours) Vital Signs Temp Pulse Resp BP Pulse Ox O2 Del Method 03/10/22 07:26 36.9 C 76 17 119/72 93 Room Air 03/09/22 21:00 Room Air PG Care Time/CCT Total # of Minutes Spent Total Time Spent with Patient: Total time spent is greater than 50% in coordination of care (as documented) at patient's floor/unit and/or counseling patient: Coding Level of Care Code None Diagnoses Acute appendicitis K35.80 Acute appendicitis type: unspecified acute appendicitis type (1) Acute appendicitis Acute appendicitis type: unspecified acute appendicitis type Qualified Code(s): K35.80 - Unspecified acute appendicitis
--- NOTE | 2022-03-11 20:25 | Discharge Summary ---
Date of Service March 11, 2022 Admission HPI Per Admitting Provider This is a 56-year-old female who notes that she was in her usual state of health yesterday but woke up this morning with pain on the right side of her abdomen. She notes that the pain is in the right upper quadrant underneath her ribs but also in the right lower quadrant. She had nausea without vomiting. She notes her most recent oral intake was approximately 3:00 PM on 03/07/2022. She denies any fevers, shakes, chills. She does note she has had prior abdominal surgeries that she has had a laparoscopic cholecystectomy, a tubal ligation, as well as a uterine ablation. She does not identify any modifying factors or radiation to her pain. Because of the pain she presented to the emergency department. It is nowhere the mention she notes in 2006 she had similar abdominal pain at which time she was told she had an appendicitis. She opted not to have surgery as she had family obligations and she has not had an issue with such pain until today. In the emergency department the patient had labs and imaging which independent reviewed. A CBC revealed white blood cell count, hemoglobin, hematocrit, and platelet count were all normal. Coagulation studies were noted to be normal. Chemistry profile showed sodium, potassium, BUN, and creatinine were normal. There was a slight elevation of her total bilirubin at 1.4 and a slight elevation of direct bilirubin 0.3. Transaminases, alkaline phosphatase, and lipase were all nonelevated.A CT scan of the abdomen pelvis showed the patient had a mildly dilated appendix measuring approximately 9 mm. The appendix was fluid-filled and had periappendiceal inflammation concerning for acute appendicitis. There is no evidence of pneumoperitoneum or abscess. At the time of my interview she was resting comfortably in bed she was in no distress Discharge Data Consultations 03/08/22 17:59 ED Decision to Admit Stat Procedures Performed Operation Date: 03/08/22 20:30 Actual Procedures p Laparoscopic Appendectomy, Meckel's diverticulectomy - Juma Pascual DO, FACS Hospital Course (1) Acute appendicitis: This is a 56-year-old female who presented to the emergency department on 03/08/2022 secondary to abdominal pain. Patient's imaging and clinical presentation was concerning for acute appendicitis. On date of admission Dr. Pascual took the patient to the operating room and performed a laparoscopic appendectomy. At the time of surgery the patient was also noted to have a Meckel's diverticulum and this was also resected without difficulty. The patient's postoperative course was relatively uneventful however the pain was noted to have some difficulty achieving adequate pain control. Her diet was advanced as tolerated and adequate pain control was achieved by postop day #2 which was 03/10/2022. She was ultimately discharged home with appropriate wound care, diet, and activity orders in place. She was instructed to follow-up with Dr. Pascual in the clinic in 1 to 2 weeks. Coding Level of Care Code None Diagnoses Acute appendicitis K35.80 Acute appendicitis type: unspecified acute appendicitis type
== END 2022-03-10 10:43 | disposition home or self-care (01) ==
LOC: ED 15:44 → 3W 19:47 → OR 19:47